=== PATIENT | female | born 1950 | race Caucasian/White ===

== ENCOUNTER 2022-12-11 06:35 | Emergency (ER) | payer MEDICARE ==
[~2022-12-11] VITALS: Ht 162.6 cm; Wt 77.1 kg
[2022-12-11 06:35] VITALS: BP 130/80; PULSE 90; RESP 17; TEMP 98; O2SAT 96
--- NOTE | 2022-12-11 06:37 | NUR ---
PT BROUGHT TO BED 9 VIA MEGAN GRAFF
--- NOTE | 2022-12-11 06:38 | NUR ---
DR EXAMINING THE PATIENT
[2022-12-11] MEDS ORDERED: TRANEXAMIC ACID 1,000 MG/10 ML VIAL ONE (06:39)
[2022-12-11] MEDS ORDERED: TRANEXAMIC ACID 1,000 MG/10 ML VIAL MC ONE (06:40)
[2022-12-11 07:38] LABS: BASOPHILS # (AUTO) 0.1 K/uL (0.00-0.22); BASOPHILS % (AUTO) 1.1 % (0.0-2.0); EOSINOPHILS # (AUTO) 0.1 K/uL (0-0.4); EOSINOPHILS % (AUTO) 1.3 % (0.0-4.0); HEMATOCRIT 41.4 % (36-48); HEMOGLOBIN 13.8 g/dL (12.0-16.0); LYMPHOCYTES # (AUTO) 1.5 K/uL (2.5-16.5); LYMPHOCYTES % (AUTO) 18.2 % (20.5-51.1); MEAN CORPUSCULAR HEMOGLOBIN 31 pg (27-31); MEAN CORPUSCULAR HGB CONC 33 g/dL (33-37); MEAN CORPUSCULAR VOLUME 93.4 fL (80-94); MONOCYTES # (AUTO) 0.5 K/uL (0.8-1.0); NEUTROPHILS # (AUTO) 6.1 K/uL (1.8-7.7); NEUTROPHILS % (AUTO) 73.4 % (42.2-75.2); PLATELET COUNT (AUTO) 307 K/uL (140-450); RED BLOOD CELL COUNT(AUTO) 4.43 MIL/uL (4.20-5.40); RED CELL DISTRIBUTION WIDTH 13.7 % (11.6-13.7); WHITE BLOOD COUNT (AUTO) 8.3 K/uL (4.8-10.8)
[2022-12-11 07:53] LABS: PROTHROMBIN TIME 10.2 secs (10.8-13.4)
[2022-12-11 08:00] LABS: ALBUMIN 3.5 g/dL (3.4-5.0); ANION GAP 11.7 (8-16); ASPARTATE AMINOTRANSFERASE 37 U/L (15-37); CARBON DIOXIDE 29.3 mmol/L (21-32); CHLORIDE 104 mmol/L (98-107); CREATININE 0.8 mg/dL (0.6-1.3); GLUCOSE 147 mg/dL (74-106); SODIUM SERUM 141 mmol/L (136-145); TOTAL BILIRUBIN 0.3 mg/dL (0.0-1.0); UREA NITROGEN, BLOOD 29 mg/dL (7-18)
[2022-12-11 10:16] VITALS: BP 111/71; PULSE 72; RESP 18; TEMP 98.1; O2SAT 96
--- NOTE | 2022-12-11 10:16 | NUR ---
Patient discharged with v/s stable. Written and verbal after care instructions given and explained. Patient verbalized understanding. Ambulatory with steady gait. All questions addressed prior to discharge. Advised to follow up with PMD.
--- NOTE | 2022-12-11 10:16 | NUR ---
The patient's care was reviewed and supervised by AMELIA DEL ANGEL RN.
== END 2022-12-11 10:16 | disposition home or self-care (01) ==
LOC: MED 06:35
DX: R04.0 Epistaxis (principal); J45.909 Unspecified asthma, uncomplicated; I10 Essential (primary) hypertension; Z79.899 Other long term (current) drug therapy
CPT/HCPCS: 30901; 36415; 80053; 85025; 85610; 85730; 99284; J3490

== ENCOUNTER 2023-06-16 10:54 | Emergency (ER) | payer MEDICARE ==
[~2023-06-16] VITALS: Ht 162.6 cm; Wt 90.7 kg
[2023-06-16 10:54] VITALS: BP 141/90; PULSE 90; RESP 16; TEMP 98.5; O2SAT 100
[2023-06-16] MEDS ORDERED: FLONAS NS (11:58)
[2023-06-16] MEDS: PHENYLEPHRINE 1% 15 ML BTL NS ONE (12:00)
== END 2023-06-16 12:44 | disposition home or self-care (01) ==
LOC: MED 10:54
DX: R04.0 Epistaxis (principal); J45.909 Unspecified asthma, uncomplicated; I10 Essential (primary) hypertension; Z79.899 Other long term (current) drug therapy
CPT/HCPCS: 99283